=== PATIENT | male | born 1960 | race Caucasian/White ===

== ENCOUNTER 2020-07-30 18:03 | Observation (INO) ==
[2020-07-30] MEDS ORDERED: *HR* Heparin 5,000 UNIT/ML VIAL IVP PRN ×2 (19:47)
[2020-07-30] MEDS ORDERED: *HR* Heparin 5,000 UNIT/ML VIAL IVP ONE (19:47)
[2020-07-30] MEDS ORDERED: Heparin 25,000UNIT/250ML 1/2NS 25,000 UNIT/250 ML IV.SOLN IVC SCH (20:00)
[2020-07-30] MEDS ORDERED: Naloxone 0.4 MG/ML INJ IVP PRN (20:03)
[2020-07-30] MEDS ORDERED: D5% in Water 1,000 ML IVC PRN (20:06)
[2020-07-30] MEDS ORDERED: Dextrose Gel 15 GM/37.5 ML TUBE PO PRN ×2 (20:06)
[2020-07-30] MEDS ORDERED: *HR* Dextrose 50 % in Water (Vial) 50 ML VIAL IVP PRN (20:06)
[2020-07-30 20:34] LABS: Hematocrit 49.3 % (37.5-50.1); Hemoglobin 16.1 g/dL (12.9-16.9); Mean Corpuscular HGB Conc 32.7 g/dL (31.6-35.5); Mean Corpuscular Hemoglobin 29.5 pg (28.0-33.3); Mean Corpuscular Volume 90.3 fL (83.0-100.0); Mean Platelet Volume 10.6 fL (9.4-12.4); Platelet Count 263 K/mcL (140-400); Red Blood Count 5.46 M/mcL (4.19-5.50); Red Cell Distribution Width 12.7 % (11.5-14.5); White Blood Count 13.5 K/mcL (4.3-11.1)
[2020-07-30 20:38] LABS: INR 1.1; Prothrombin Time 12.4 Seconds (9.4-12.1)
[2020-07-30 20:51] LABS: BUN/Creatinine Ratio 12 (6-26); Blood Urea Nitrogen 15 mg/dL (8-23); Calcium 9.3 mg/dL (8.6-10.3); Carbon Dioxide 28 mEq/L (23-29); Chloride 103 mEq/L (98-107); Glucose 170 mg/dL (70-105); Osmolality,Calculated 291 (280-300); Sodium 138 mEq/L (136-145); eGFR For African Americans > 60 (> 60); eGFR For Non-African Americans > 60 (> 60)
[2020-07-30] MEDS ORDERED: Insulin LISPRO 300 UNITS/3 ML VIAL SQ SCH (21:00)
[2020-07-30] MEDS ORDERED: Acetaminophen 325 MG TABLET PO PRN (21:02)
[2020-07-30] MEDS: Heparin 25,000UNIT/250ML 1/2NS 25,000 UNIT/250 ML IV.SOLN IVC SCH (23:10)
[2020-07-31 01:22] LABS: Hematocrit 46.6 % (37.5-50.1); Hemoglobin 15.6 g/dL (12.9-16.9); Mean Corpuscular HGB Conc 33.5 g/dL (31.6-35.5); Mean Corpuscular Hemoglobin 30.6 pg (28.0-33.3); Mean Corpuscular Volume 91.6 fL (83.0-100.0); Mean Platelet Volume 11.4 fL (9.4-12.4); Platelet Count 245 K/mcL (140-400); Red Blood Count 5.09 M/mcL (4.19-5.50); Red Cell Distribution Width 12.7 % (11.5-14.5); White Blood Count 11.7 K/mcL (4.3-11.1)
[2020-07-31 01:40] LABS: BUN/Creatinine Ratio 13 (6-26); Blood Urea Nitrogen 15 mg/dL (8-23); Carbon Dioxide 27 mEq/L (23-29); Chloride 104 mEq/L (98-107); Glucose 173 mg/dL (70-105); Magnesium 2.2 mg/dL (1.6-2.6); Osmolality,Calculated 291 (280-300); Potassium 3.7 mEq/L (3.5-5.1); Sodium 138 mEq/L (136-145); eGFR For African Americans > 60 (> 60); eGFR For Non-African Americans > 60 (> 60)
[2020-07-31] MEDS ORDERED: Spironolactone 25 MG TABLET PO SCH (09:00)
[2020-07-31] MEDS: Insulin LISPRO 300 UNITS/3 ML VIAL SQ SCH ×3 (09:14→17:01)
[2020-07-31] MEDS: Heparin 25,000UNIT/250ML 1/2NS 25,000 UNIT/250 ML IV.SOLN IVC SCH (10:01)
[2020-07-31 11:56] VITALS: BP 111/71
[2020-07-31] MEDS ORDERED: Apixaban 5 MG TABLET PO SCH (16:00)
== END 2020-07-31 17:02 | disposition home or self-care (01) ==
LOC: 3ANU 18:03 → EMEROOARM 18:03 → 3ANU 21:15
PROVIDERS: ADMIT Internal Medicine; ATTEND Internal Medicine